=== PATIENT | female | born 1990 | race Caucasian/White ===

== ENCOUNTER 2025-01-12 12:41 | Emergency (ER) | payer MEDICAID ==
[~2025-01-12] VITALS: Ht 162.6 cm; Wt 68.0 kg
[2025-01-12 13:10] VITALS: TEMP 98.2
[2025-01-12] MEDS: IV NS 0.9% 1,000 ML BAG IV ONE (13:30)
[2025-01-12] MEDS ORDERED: ONDANSETRON HCL/PF 4 MG/2 ML VIAL ONE (13:37)
[2025-01-12] MEDS: ONDANSETRON HCL/PF 4 MG/2 ML VIAL IVP ONE (13:46)
[2025-01-12 13:53] LABS: PLATELET COUNT (AUTO) 268 K/uL (150-450); RED BLOOD CELL COUNT(AUTO) 5.04 MIL/uL (4.0-5.2); RED CELL DISTRIBUTION WIDTH 13.6 % (11.5-15.0); WHITE BLOOD COUNT (AUTO) 9.7 K/uL (4.3-11.0)
[2025-01-12 14:01] LABS: CALCIUM, SERUM 8.9 mg/dL (8.5-10.1); CREATININE 0.7 mg/dL (0.6-1.3); SODIUM SERUM 141.0 mmol/L (136-145); UREA NITROGEN, BLOOD 9.0 mg/dL (7-18)
[2025-01-12] MEDS ORDERED: METOCLOPRAMIDE HCL 10 MG/2 ML VIAL ONE (14:03)
[2025-01-12 14:07] LABS: ASPARTATE AMINOTRANSFERASE 13.0 U/L (15-37); TOTAL PROTEIN, SERUM 7.2 g/dL (6.4-8.2)
[2025-01-12] MEDS: METOCLOPRAMIDE HCL 10 MG/2 ML VIAL IV ONE (14:08)
[2025-01-12] MEDS ORDERED: LIDOCAINE VISCOUS 2% UD 15 ML UDC ONE (14:33)
[2025-01-12] MEDS ORDERED: MAG HYDROX/AL HYDROX/SIMETH 30 ML UDC ONE (14:33)
[2025-01-12] MEDS ORDERED: FAMOTIDINE/PF INJ 20 MG/2 ML VIAL IV ONE (14:34)
[2025-01-12] MEDS: LIDOCAINE VISCOUS 2% UD 15 ML UDC MM ONE (14:35)
[2025-01-12] MEDS: MAG HYDROX/AL HYDROX/SIMETH 30 ML UDC PO ONE (14:35)
[2025-01-12] MEDS: FAMOTIDINE/PF INJ 20 MG/2 ML VIAL IV ONE (14:43)
[2025-01-12 14:52] LABS: APPEARANCE,URINE CLEAR (CLEAR); BLOOD, URINE NEGATIVE Ery/uL (NEGATIVE); LEUKOCYTE ESTERASE ,URINE NEGATIVE (NEGATIVE); NITRITE, URINE NEGATIVE (NEGATIVE); UGLUCOSE NEGATIVE (NEGATIVE)
[2025-01-12 14:54] LABS: PREGNANCY TEST URINE QUAL NEGATIVE (NEGATIVE)
[2025-01-12] MEDS ORDERED: FAMO20TA8 PO (15:16)
[2025-01-12] MEDS ORDERED: DICY10CA37 PO (15:16)
[2025-01-12] MEDS ORDERED: METO-295 PO (15:16)
[2025-01-12 15:30] VITALS: BP 127/85; O2SAT 98
== END 2025-01-12 15:25 | disposition home or self-care (01) ==
LOC: ER 12:52
DX: R10.13 Epigastric pain (principal); R11.2 Nausea with vomiting, unspecified; R19.7 Diarrhea, unspecified
CPT/HCPCS: 99284; 96374; 96361; 96375; 85025; 80048; 87086; 83690; 80076; 84703; 81003; 36415; J1308; J2765; J2405; J7030